=== PATIENT | male | born 1995 | race American Indian/Alaskan Native ===

== ENCOUNTER 2018-10-12 14:55 | Emergency (ER) | payer MEDICAID, OTHER ==
[2018-10-12 15:05] VITALS: RESP 18; TEMP 98.3; BMI 25.0
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
--- NOTE | 2018-10-12 16:33 | RAD ---
Date of service: 10/12/2018 PROCEDURE: Cervical Spine Radiographs. HISTORY: Pain. COMPARISON: None available. FINDINGS: BONES: Alignment maintained. No fracture. Dens Intact. DISC SPACES: Normal. SOFT TISSUES: Normal. No prevertebral soft tissue swelling. OTHER FINDINGS: None. IMPRESSION: Normal cervical spine radiographs
--- NOTE | 2018-10-12 16:34 | RAD ---
Date of service: 10/12/2018 HISTORY: injury/pain COMPARISON: No prior. FINDINGS: BONES: Alignment maintained. No fracture. DISC SPACES: Normal. SOFT TISSUES: Normal. OTHER FINDINGS: None. IMPRESSION: Normal radiographs of the thoracic spine.
[2018-10-13 01:03] VITALS: BP 124/64; PULSE 72; O2SAT 99
== END 2018-10-12 17:15 | disposition home or self-care (01) ==
LOC: ED 14:55
DX: M79.18 Myalgia, other site (principal); V43.52XA Car driver injured in collision with other type car in traffic accident, initial encounter